=== PATIENT | male | born 1985 | race African-American/Black ===

== ENCOUNTER 2017-08-15 21:08 | Emergency (ER) | payer OTHER ==
[~2017-08-15] VITALS: Ht 193 cm; Wt 104.4 kg
[2017-08-15 22:55] VITALS: BP 149/87
== END 2017-08-15 22:55 | disposition home or self-care (01) ==
LOC: EME 21:08
PROVIDERS: Physician Assistant
DX: J10.1 Influenza due to other identified influenza virus with other respiratory manifestations (principal)
CPT/HCPCS: 87502; 87651 90; 99281; 99283

== ENCOUNTER 2017-08-18 01:50 | Emergency (ER) | payer OTHER ==
[~2017-08-18] VITALS: Ht 193 cm; Wt 100.2 kg
[2017-08-18 04:32] LABS: BASOPHIL (%) 0.3 % (0-1); EOSINOPHIL (%) 0 % (0-5); HEMATOCRIT 44.5 % (38.0-50.0); HEMOGLOBIN 15.6 G/DL (12.5-16.6); IMMATURE GRANULOCYTE (%) 0.2 % (0.0-0.7); LYMPHOCYTE (%) 9.3 % (15-42); LYMPHOCYTE COUNT 0.6 K/uL (1.0-2.8); MCH 29.3 PG (29.0-34.0); MCHC 35.1 G/DL (30.0-36.0); MCV 83.6 FL (86-99); MONOCYTE (%) 6.7 % (3-12); MONOCYTE COUNT 0.4 K/uL (0-0.8); NEUTROPHIL (%) 83.5 % (45-76); NEUTROPHIL COUNT 5.5 K/uL (1.8-6.4); PLATELET COUNT 127 K/uL (156-360); RBC DIS.WIDTH-CV 12.1 % (11.8-14.6); RBC DIS.WIDTH-SD 36.2 % (39-53); RED BLOOD COUNT 5.32 M/uL (4.00-5.50); WHITE BLOOD COUNT 6.6 K/uL (4.1-10.2)
[2017-08-18 04:40] LABS: CHLORIDE 104 mEq/L (99-109); POTASSIUM 4.1 mEq/L (3.7-5.4); SODIUM 139 mEq/L (136-147)
[2017-08-18 04:42] LABS: GLUCOSE 113 mg/dL (70-99)
[2017-08-18 04:46] LABS: CREATININE 1.2 mg/dL (0.6-1.3); GFR ESTIMATE (CALCULATED) > 59 mL/min/ (58.99-99999); UREA NITROGEN (BUN) 13 mg/dL (9-23)
[2017-08-18 04:48] LABS: CREATINE KINASE 310 IU/L (1-294)
[2017-08-18 05:58] VITALS: BP 134/80
== END 2017-08-18 05:59 | disposition home or self-care (01) ==
LOC: EME 01:50
PROVIDERS: Emergency Medicine
DX: J11.1 Influenza due to unidentified influenza virus with other respiratory manifestations (principal); M79.1 Myalgia; T50.995A Adverse effect of other drugs, medicaments and biological substances, initial encounter
CPT/HCPCS: 80048; 82550; 85025; 99281; 99284